=== PATIENT | female | born 1955 | race Caucasian/White ===

== ENCOUNTER 2018-03-21 08:49 | Outpatient (CLI) | payer OTHER ==
--- NOTE | 2018-03-28 12:24 | MMO ---
BILATERAL DIGITAL SCREENING MAMMOGRAMS: Date: 03/21/18 HISTORY: 62-year-old female presents for digital screening mammogram. COMPARISON: 08/25/15 and 08/16/13. FINDINGS: This patient's mammogram was interpreted with the assistance of computer-aided detection. The breasts are mostly fatty. There are a few typically benign calcifications. Stable left outer intr amammary lymph node. IMPRESSION: BIRADS 2: Benign Finding(s) Continue routine screening. POS: [facility]
== END 2018-03-21 08:50 | disposition home or self-care (01) ==
LOC: SCSMAMMO 08:49
PROVIDERS: ATTEND Student in an Organized Health Care Education/Training Program
DX: Z12.31 Encounter for screening mammogram for malignant neoplasm of breast (principal)
CPT/HCPCS: 77067